=== PATIENT | male | born 1980 | race Caucasian/White ===

== ENCOUNTER 2019-03-01 11:48 | Observation (INO) ==
[2019-03-01] MEDS ORDERED: Isovue-370 500 ML BOTTLE IVP ONE (12:27)
[2019-03-01 13:12] LABS: Basophils % 0.3 %; Eosinophils # 0.1 K/mcL (0.0-0.6); Eosinophils % 0.8 %; Hematocrit 51.8 % (37.5-50.1); Hemoglobin 17.1 g/dL (12.9-16.9); Immature Granulocytes % 0.4 % (0-4); Lymphocytes # 2.6 K/mcL (0.6-4.6); Lymphocytes % 18.3 %; Mean Corpuscular Hemoglobin 28.5 pg (28.0-33.3); Mean Corpuscular Volume 86.3 fL (83.0-100.0); Mean Platelet Volume 10.6 fL (9.4-12.4); Monocytes # 0.8 K/mcL (0.0-1.3); Monocytes % 5.6 %; Neutrophils # 10.6 K/mcL (1.6-8.9); Platelet Count 175 K/mcL (140-400); Red Cell Distribution Width 14.5 % (11.5-14.5); Segmented Neutrophils % 74.6 %; White Blood Count 14.2 K/mcL (4.3-11.1)
[2019-03-01] MEDS ORDERED: Ketorolac 15 MG/ML VIAL IVP ONE (13:38)
[2019-03-01 13:55] LABS: BUN/Creatinine Ratio 9 (6-26); Blood Urea Nitrogen 7 mg/dL (6-20); C-Reactive Protein 22 mg/L (Less than 10); Calcium 10.1 mg/dL (8.6-10.3); Carbon Dioxide 28 mEq/L (23-29); Chloride 103 mEq/L (98-107); Glucose 88 mg/dL (70-105); Osmolality,Calculated 281 (280-300); Potassium 3.7 mEq/L (3.5-5.1); Sodium 137 mEq/L (136-145); eGFR For African Americans > 60 (> 60); eGFR For Non-African Americans > 60 (> 60)
[2019-03-01] MEDS ORDERED: Piperacillin/Tazobactam 3.375 GM in 0.9 % Sodium Chloride Mini Bag 100 ML IVPB ONE (15:06)
[2019-03-01] MEDS ORDERED: Ondansetron ODT 4 MG TAB.RAPDIS SL PRN (16:11)
[2019-03-01] MEDS ORDERED: Naloxone 0.4 MG/ML INJ IVP PRN (16:11)
[2019-03-01] MEDS ORDERED: Acetaminophen 325 MG TABLET PO PRN (16:11)
[2019-03-01] MEDS ORDERED: MOM Conc 10 ML UD.LIQ PO PRN (16:11)
[2019-03-01] MEDS ORDERED: Lidocaine/EPI 1:100k 1% 30 ML VIAL INFILT ONE (17:13)
[2019-03-01] MEDS ORDERED: Bupivacaine/EPI 1:200k 0.5%PF 10 ML VIAL INFILT ONE ×2 (17:14→17:30)
[2019-03-01] MEDS ORDERED: Bupivacaine/EPI 1:200k 0.5%PF 30 ML VIAL INFILT ONE (17:30)
[2019-03-01] MEDS: 0.9 % Sodium Chloride 1,000 ML IVC SCH ×2 (19:15→23:21)
[2019-03-01] MEDS: Nicotine 21 MG PATCH.TD24 TD SCH (19:15)
[2019-03-01] MEDS: Gabapentin 300 MG CAPSULE PO SCH (20:29)
[2019-03-01 20:45] LABS: Amphetamine Screen,Urine Negative ng/mL (Cutoff=1000); Barbiturate Screen,Urine Negative ng/mL (Cutoff=200); Benzodiazepines Screen,Urine Negative ng/mL (Cutoff=200); Cannabinoid Screen,Urine Negative ng/mL (Cutoff = 50); Cocaine Screen,Urine Negative ng/mL (Cutoff= 300); Opiate Screen,Urine Negative ng/mL (Cutoff=300); Phencyclidine Screen,Urine Negative ng/mL (Cutoff=25)
[2019-03-02] MEDS: Piperacillin/Tazobactam 3.375 GM in 0.9 % Sodium Chloride Mini Bag 100 ML IVPB SCH ×2 (00:56→08:10)
[2019-03-02] MEDS: 0.9 % Sodium Chloride 1,000 ML IVC SCH (03:47)
[2019-03-02] MEDS: Nicotine 21 MG PATCH.TD24 TD SCH (08:10)
[2019-03-02] MEDS: Gabapentin 300 MG CAPSULE PO SCH ×2 (08:10→14:16)
[2019-03-02] MEDS ORDERED: Ketorolac 15 MG/ML VIAL IVP ONE ×2 (08:22→12:43)
[2019-03-02 10:39] LABS: Hematocrit 47.4 % (37.5-50.1); Mean Corpuscular HGB Conc 32.3 g/dL (31.6-35.5); Mean Corpuscular Hemoglobin 29.1 pg (28.0-33.3); Mean Corpuscular Volume 90.1 fL (83.0-100.0); Mean Platelet Volume 10.9 fL (9.4-12.4); Platelet Count 140 K/mcL (140-400); Red Blood Count 5.26 M/mcL (4.19-5.50); Red Cell Distribution Width 14.4 % (11.5-14.5); White Blood Count 7.7 K/mcL (4.3-11.1)
[2019-03-02 10:40] LABS: Hemoglobin 15.3 g/dL (12.9-16.9)
[2019-03-02 11:00] LABS: BUN/Creatinine Ratio 12 (6-26); Blood Urea Nitrogen 10 mg/dL (6-20); Calcium 8.9 mg/dL (8.6-10.3); Carbon Dioxide 25 mEq/L (23-29); Chloride 108 mEq/L (98-107); Glucose 83 mg/dL (70-105); Magnesium 1.9 mg/dL (1.6-2.6); Osmolality,Calculated 286 (280-300); Potassium 4.2 mEq/L (3.5-5.1); Sodium 139 mEq/L (136-145); eGFR For African Americans > 60 (> 60); eGFR For Non-African Americans > 60 (> 60)
[2019-03-02 15:09] VITALS: BP 144/90
[2019-03-02] MEDS ORDERED: Aminoglycoside Consult 1 EACH MC ONE (16:00)
== END 2019-03-02 16:01 | disposition home or self-care (01) ==
LOC: EMEROOARM 11:48 → 3ANU 11:48 → SUATTDRO 16:34 → 3ANU 18:24
PROVIDERS: ADMIT Internal Medicine; ATTEND Internal Medicine